=== PATIENT | male | born 1980 | race Caucasian/White ===

== ENCOUNTER → 2016-08-07 | Outpatient (CLI) | payer BC | LOC: LAB 08:58 | DX: I10 Essential (primary) hypertension (principal); M1A.9XX0 Chronic gout, unspecified, without tophus (tophi); N52.2 Drug-induced erectile dysfunction ==

== ENCOUNTER → 2016-12-22 | Outpatient (CLI) | payer BC | LOC: LAB 08:57 | DX: M10.9 Gout, unspecified (principal) ==

== ENCOUNTER → 2017-07-19 | Outpatient (CLI) | payer BC | LOC: LAB 14:07 | DX: J06.9 Acute upper respiratory infection, unspecified (principal) ==

== ENCOUNTER → 2018-12-27 | Outpatient (CLI) | payer BC ==
[2018-12-27 08:57] LABS: ALBUMIN 4.1 g/dL (3.5-5.0); POTASSIUM 4.2 mmol/L (3.5-5.1)
[2018-12-27 08:58] LABS: CALCIUM 9.2 mg/dL (8.3-10.5)
[2018-12-27 09:00] LABS: BASO # 0.1 (0.02-0.10); EOS # 0.2 (0.04-0.40); EOS % 2.6 % (0.0-4.0); HEMATOCRIT 45.7 % (42.0-52.0); HEMOGLOBIN 15.3 g/dL (13.5-18.0); LYMPH# 2.5 (1.50-4.00); MEAN CELL VOLUME 86 fl (78-100); MEAN CORPUSCULAR HEMOGLOBIN 29 pg (27-31); MEAN CORPUSCULAR HGB CONC 34 g/dL (33-37); MEAN PLATELET VOLUME 10.8 fl (7.4-10.4); MONO # 0.5 (0.20-0.80); NEU # 4.5 (1.40-6.50); PLATELET COUNT 216 K/mm3 (130-400); RED BLOOD COUNT 5.29 M/mm3 (4.20-5.60); RED CELL DISTRIBUTION WIDTH 13.7 % (11.5-14.5); TOTAL PROTEIN 7.2 g/dL (6.4-8.3); WHITE BLOOD COUNT 7.8 K/mm3 (4.8-10.8)
[2018-12-27 09:01] LABS: TOTAL BILIRUBIN 0.6 mg/dL (0.2-1.2)
== END ==
LOC: RAD 08:34
PROVIDERS: Family Medicine
DX: Z00.00 Encounter for general adult medical examination without abnormal findings (principal); M43.17 Spondylolisthesis, lumbosacral region; M43.06 Spondylolysis, lumbar region; M47.817 Spondylosis without myelopathy or radiculopathy, lumbosacral region; R16.1 Splenomegaly, not elsewhere classified; E78.5 Hyperlipidemia, unspecified; K42.9 Umbilical hernia without obstruction or gangrene

== ENCOUNTER → 2019-07-12 | Outpatient (CLI) | payer BC | LOC: CARDLAB 08:02 | DX: E66.9 Obesity, unspecified (principal) | CPT/HCPCS: G0399 ==

== ENCOUNTER 2019-08-03 12:13 | Emergency (ER) | payer BC ==
[~2019-08-03] VITALS: Ht 203.2 cm; Wt 184.1 kg
[2019-08-03] MEDS ORDERED: LISINOPRIL30 MG (12:28)
[2019-08-03] MEDS ORDERED: ZYLOPRIM 100MG100 MG PO (12:28)
[2019-08-03] MEDS ORDERED: INDOMETHACIN50 M2 PO (12:28)
[2019-08-03 13:25] LABS: ALBUMIN 4.2 g/dL (3.5-5.0); BASO # 0.1 (0.02-0.10); EOS # 0.1 (0.04-0.40); EOS % 1.5 % (0.0-4.0); HEMATOCRIT 46.5 % (42.0-52.0); HEMOGLOBIN 15.3 g/dL (13.5-18.0); LYMPH# 1.8 (1.50-4.00); MEAN CELL VOLUME 86 fl (78-100); MEAN CORPUSCULAR HEMOGLOBIN 28 pg (27-31); MEAN CORPUSCULAR HGB CONC 33 g/dL (33-37); MEAN PLATELET VOLUME 10.6 fl (7.4-10.4); MONO # 0.6 (0.20-0.80); NEU # 6.7 (1.40-6.50); PLATELET COUNT 237 K/mm3 (130-400); RED CELL DISTRIBUTION WIDTH 14.2 % (11.5-14.5); WHITE BLOOD COUNT 9.3 K/mm3 (4.8-10.8)
[2019-08-03 13:26] LABS: POTASSIUM 4.5 mmol/L (3.5-5.1)
[2019-08-03 13:27] LABS: CALCIUM 8.5 mg/dL (8.3-10.5)
[2019-08-03 13:28] LABS: TOTAL PROTEIN 7.2 g/dL (6.4-8.3)
[2019-08-03 13:30] LABS: TOTAL BILIRUBIN 0.3 mg/dL (0.2-1.2)
[2019-08-03 16:30] VITALS: BP 140/83
== END 2019-08-03 16:27 | disposition home or self-care (01) ==
LOC: ED 12:13
PROVIDERS: Nurse Practitioner Family
DX: H57.13 Ocular pain, bilateral (principal); L03.213 Periorbital cellulitis; I10 Essential (primary) hypertension; M10.9 Gout, unspecified
CPT/HCPCS: Q9967

== ENCOUNTER → 2020-05-06 | Outpatient (CLI) | payer BC ==
[~2020-05-06] MED LIST: INDOMETHACIN50 M2 PO; LISINOPRIL30 MG; ZYLOPRIM 100MG100 MG PO
[2020-05-06 11:55] LABS: EOS # 0.2 (0.04-0.40); HEMOGLOBIN 15.4 g/dL (13.5-18.0); LYMPH# 2.2 (1.50-4.00); MEAN CELL VOLUME 87 fl (78-100); MEAN CORPUSCULAR HEMOGLOBIN 28 pg (27-31); MEAN CORPUSCULAR HGB CONC 33 g/dL (33-37); MEAN PLATELET VOLUME 10.6 fl (7.4-10.4); MONO # 0.5 (0.20-0.80); NEU # 4.6 (1.40-6.50); PLATELET COUNT 237 K/mm3 (130-400); RED BLOOD COUNT 5.42 M/mm3 (4.20-5.60); RED CELL DISTRIBUTION WIDTH 13.7 % (11.5-14.5); WHITE BLOOD COUNT 7.5 K/mm3 (4.8-10.8)
[2020-05-06 12:17] LABS: ALBUMIN 4.1 g/dL (3.5-5.0)
[2020-05-06 12:18] LABS: CALCIUM 9.1 mg/dL (8.3-10.5)
[2020-05-06 12:21] LABS: TOTAL BILIRUBIN 0.6 mg/dL (0.2-1.2)
[2020-05-06 13:30] LABS: D-DIMER 0.23 mg/L FEU (0.15-0.50)
== END ==
LOC: LAB 11:33
PROVIDERS: Family Medicine
DX: M1A.00X0 Idiopathic chronic gout, unspecified site, without tophus (tophi) (principal); E78.5 Hyperlipidemia, unspecified

== ENCOUNTER → 2021-01-15 | Outpatient (CLI) | payer BC | LOC: LAB 12:56 | DX: R50.9 Fever, unspecified (principal); Z20.822 Contact with and (suspected) exposure to COVID-19 ==

== ENCOUNTER → 2021-07-03 | Outpatient (CLI) | payer BC | LOC: LAB 15:38 | DX: U07.1 COVID-19 (principal) ==

== ENCOUNTER → 2021-12-22 | Outpatient (CLI) | payer BC ==
[2021-12-22 11:41] LABS: BASO # 0.06 K/mm3 (0.02-0.10); EOS % 2.8 % (0.0-4.0); HEMATOCRIT 46.2 % (42.0-52.0); HEMOGLOBIN 15.6 g/dL (13.5-18.0); LYMPH# 2.28 K/mm3 (1.50-4.00); MEAN CELL VOLUME 86 fl (78-100); MEAN CORPUSCULAR HEMOGLOBIN 29 pg (27-31); MEAN CORPUSCULAR HGB CONC 34 g/dL (33-37); MEAN PLATELET VOLUME 11.4 fl (7.4-10.4); MONO # 0.39 K/mm3 (0.20-0.80); NEU # 4.26 K/mm3 (1.40-6.50); PLATELET COUNT 241 K/mm3 (130-400); RED BLOOD COUNT 5.37 M/mm3 (4.20-5.60); RED CELL DISTRIBUTION WIDTH 13.2 % (11.5-14.5); WHITE BLOOD COUNT 7.2 K/mm3 (4.8-10.8)
[2021-12-22 13:49] LABS: CALCIUM 9.6 mg/dL (8.3-10.5)
[2021-12-22 13:52] LABS: TOTAL BILIRUBIN 0.6 mg/dL (0.2-1.2)
[2021-12-22 14:06] LABS: ALBUMIN 4.1 g/dL (3.5-5.0); POTASSIUM 4.3 mmol/L (3.5-5.1); TOTAL PROTEIN 7.2 g/dL (6.4-8.3)
== END ==
LOC: LAB 08:49
PROVIDERS: Family Medicine
DX: Z00.00 Encounter for general adult medical examination without abnormal findings (principal); E78.5 Hyperlipidemia, unspecified; M1A.00X0 Idiopathic chronic gout, unspecified site, without tophus (tophi); I10 Essential (primary) hypertension; E66.9 Obesity, unspecified

== ENCOUNTER → 2023-05-12 | Outpatient (CLI) | payer BC ==
[~2023-05-12] MED LIST changes: +FUROSEMIDE40 MG PO; +MORGIDOX 1X100100 MG PO
== END ==
LOC: LAB 10:59
DX: U07.1 COVID-19 (principal); R06.2 Wheezing

== ENCOUNTER → 2024-01-11 | Outpatient (CLI) | payer BC ==
[2024-01-11 10:07] LABS: BASO # 0.06 K/mm3 (0.02-0.10); EOS # 0.19 K/mm3 (0.04-0.40); EOS % 1.8 % (0.0-4.0); HEMATOCRIT 48.3 % (42.0-52.0); HEMOGLOBIN 15.6 g/dL (13.5-18.0); LYMPH# 2.92 K/mm3 (1.50-4.00); MEAN CELL VOLUME 89 fl (78-100); MEAN CORPUSCULAR HEMOGLOBIN 29 pg (27-31); MEAN CORPUSCULAR HGB CONC 32 g/dL (33-37); MEAN PLATELET VOLUME 10.3 fl (7.4-10.4); MONO # 0.51 K/mm3 (0.20-0.80); NEU # 6.56 K/mm3 (1.40-6.50); PLATELET COUNT 257 K/mm3 (130-400); RED BLOOD COUNT 5.46 M/mm3 (4.20-5.60); RED CELL DISTRIBUTION WIDTH 13.4 % (11.5-14.5); WHITE BLOOD COUNT 10.3 K/mm3 (4.8-10.8)
[2024-01-11 10:11] LABS: ALBUMIN 4.2 g/dL (3.5-5.0); SODIUM 138 mmol/L (136-145)
[2024-01-11 10:12] LABS: CALCIUM 9.9 mg/dL (8.3-10.5)
[2024-01-11 10:14] LABS: GLUCOSE 93 mg/dL (75-110); TOTAL PROTEIN 7.3 g/dL (6.4-8.3)
[2024-01-11 10:15] LABS: CARBON DIOXIDE 24 mmol/L (22-29)
[2024-01-11 10:16] LABS: TOTAL BILIRUBIN 0.7 mg/dL (0.2-1.2)
[2024-01-11 10:19] LABS: AST-SGOT 27 U/L (5-34)
[2024-01-11 10:21] LABS: ALT/SGPT 40 U/L (0-55)
[2024-01-11 10:31] LABS: TROPONIN-I < 0.030 ng/mL (0.00-0.033)
== END ==
LOC: LAB 09:51
PROVIDERS: Family Medicine
DX: E78.2 Mixed hyperlipidemia (principal); I10 Essential (primary) hypertension; R07.9 Chest pain, unspecified; R73.9 Hyperglycemia, unspecified